=== PATIENT | male | born 1960 | race Caucasian/White ===

== ENCOUNTER 2019-07-02 20:08 | Emergency (ER) | payer BC ==
[2019-07-02] MEDS ORDERED: Ketorolac 60 MG/2 ML SDV IM ONE (20:54)
[2019-07-02] MEDS ORDERED: Ondansetron 4 MG Tab.DIS PO ONE (20:54)
--- NOTE | 2019-07-02 21:02 | EDM.PDOC ---
ED HPI GENERAL MEDICAL PROBLEM - General Chief Complaint: Genitourinary Problem Stated Complaint: SEVERE KIDNEY STONES Time Seen by Provider: 07/02/19 20:45 Source of Information: Reports: Patient, Family, RN Notes Reviewed History Limitations: Reports: No Limitations - History of Present Illness INITIAL COMMENTS - FREE TEXT/NARRATIVE: 58-year-old gentleman presents to emergency department today complaint of left flank pain, he has a known history of nephrolithiasis he states this feels very similar he was doing fine today sudden onset of pain rated 10 out of 10 he has had nausea and vomiting he is not taking anything for the pain Left Abdomen Pain Score (Numeric/FACES): 10 - Related Data Allergies Allergy/AdvReac Type Severity Reaction Status Date / Time No Known Allergies Allergy Verified 07/02/19 20:38 Home Meds: Home Meds Lisinopril 10 mg PO DAILY 07/02/19 [History] Past Medical History Cardiovascular History: Reports: Hypertension Genitourinary History: Reports: Renal Calculus Other Genitourinary History: 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 Denies: Hematuria Musculoskeletal: Reports: No Symptoms Skin: Reports: No Symptoms ED EXAM, GI/ABD - Physical Exam Exam: See Below Exam Limited By: No Limitations General Appearance: Alert, WD/WN, No Apparent Distress Respiratory/Chest: No Respiratory Distress, Lungs Clear, Normal Breath Sounds, No Accessory Muscle Use, Chest Non-Tender Cardiovascular: Regular Rate, Rhythm, No Murmur GI/Abdominal Exam: Soft, Non-Tender Back Exam: Normal Inspection, Full Range of Motion. No: CVA Tenderness (R), CVA Tenderness (L) Course - Vital Signs Last Recorded V/S: Last Vital Signs Temp 95.7 F 07/02/19 20:36 Pulse 50 L 07/02/19 20:36 Resp 16 07/02/19 20:36 BP 140/76 07/02/19 20:36 Pulse Ox 99 07/02/19 20:36 - Orders/Labs/Meds Labs: Laboratory Tests 07/02/19 07/02/19 Range/Units 21:10 21:10 WBC 6.3 (4.5-11.0) K/uL RBC 4.34 (4.30-5.90) M/uL Hgb 12.8 (12.0-15.0) g/dL Hct 39.1 L (40.0-54.0) % MCV 90 (80-98) fL MCH 30 (27-31) pg MCHC 33 (32-36) % Plt Count 250 (150-400) K/uL Neut % (Auto) 83 H (36-66) % Lymph % (Auto) 11 L (24-44) % Lucas % (Auto) 6 (2-6) % Eos % (Auto) 1 L (2-4) % Baso % (Auto) 0 (0-1) % Sodium 141 (140-148) mmol/L Potassium 4.5 (3.6-5.2) mmol/L Chloride 106 (100-108) mmol/L Carbon Dioxide 25 (21-32) mmol/L Anion Gap 10.1 (5.0-14.0) mmol/L BUN 18 (7-18) mg/dL Creatinine 1.7 H (0.8-1.3) mg/dL Est Cr Clr Drug Dosing 54.83 mL/min Estimated GFR (MDRD) 42 L (>60) Glucose 129 H (74-106) mg/dL Calcium 8.8 (8.5-10.1) mg/dL Meds: Medications Discontinued Medications Generic Name Dose Route Start Last Admin Trade Name Freq PRN Reason Stop Dose Admin Ketorolac Tromethamine 60 mg 07/02/19 20:54 07/02/19 21:19 Toradol IM 07/02/19 20:55 60 mg ONETIME ONE Administration Ondansetron HCl 4 mg 07/02/19 20:54 07/02/19 21:19 Zofran Odt PO 07/02/19 20:55 4 mg ONETIME ONE Administration Departure - Departure Time of Disposition: 23:03 Disposition: Home, Self-Care 01 Condition: Fair Clinical Impression: Left renal stone - Discharge Information Instructions: Kidney Stones, [id number] Referrals: PCP,None [Primary Care Provider] - Forms: ED Department Discharge Additional Instructions: Use Toradol as needed for baseline pain control, use hydrocodone for breakthrough pain, please follow-up with your urologist upon return home. - Assessment/Plan Plan: Assessment Acuity = acute Site and laterality = left nephrolithiasis 12 mm x 9 mm Etiology = unknown etiology Manifestations = pain, nausea, vomiting Location of injury = Home Lab values = CBC CMP unremarkable CT scan describes a stone above Plan I did review lab work CT scan results with him he had good relief from the Toradol provided, prescription written for Toradol 10 mg by mouth 3 times a day when necessary total #20 as well as hydrocodone 5/325 one tab by mouth every 6 hours when necessary total #10 he will follow up with his urologist upon return home a report of this CAT scan was also provided This note was dictated using [employer] voice recognition software please call with any questions on syntax or grammar.
--- NOTE | 2019-07-02 22:35 | CRLCT ---
INDICATION: Left flank pain. COMPARISON: None available TECHNIQUE: CT examination of the abdomen and pelvis was performed without contrast enhancement using 2 mm thick axial sections from the lung bases through the pubic symphysis. Oral contrast was not administered. Please note that all CT scans at this facility use dose modulation, iterative reconstruction, and/or weight-based dosing when appropriate to reduce radiation dose to as low as reasonably achievable. FINDINGS: In the abdomen, the unenhanced liver, spleen, pancreas, and adrenals are normal in appearance. There is mild left hydronephrosis and moderate dilatation of the left renal pelvis from a 12 x 9 millimeter UPJ calculus. There is no sign of any additional renal or ureteral calculi. There is no sign of additional ureteral dilatation. There is prominent atrophy of the right kidney with marked thinning of the cortex. There is mild calcification of the posterior renal cortex in the lower pole. A few other punctate cortical calcifications are scattered throughout the right kidney. There is no sign of right hydronephrosis or hydroureter. The gallbladder is normal in appearance. The abdominal aorta is normal in caliber with no sign of dilatation. There is no sign of retroperitoneal mass or adenopathy. There are multiple lines of surgical mekhi in the area of the gastric fundus consistent with gastric bypass surgery. The rest of the stomach, loops of small bowel, and colon in the abdomen are normal in appearance. In the pelvis, the appendix is normal in appearance with no sign of inflammatory process. The loops of small bowel and colon in the pelvis are normal in appearance. The prostate is normal in appearance. The urinary bladder is normal in appearance. There is no sign of pelvic or inguinal mass or adenopathy. There is mild linear scarring in the posterior right lung base. The lung bases are otherwise clear. There is grade 1 posterior subluxation of L5 on S1 with prominent L5-S1 disc degenerative disease. There may be fusion at this level. 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 IMPRESSION: CT of the abdomen shows mild left hydronephrosis and moderate dilatation of the left renal pelvis produced by a 12 x 9 millimeter left UVJ calculus. No sign of any additional left renal or ureteral calculi. Prominent atrophy of the right kidney with several areas of cortical calcification. Status post gastric bypass surgery. Normal CT of the pelvis without contrast. Please note that all CT scans at this facility use dose modulation, iterative reconstruction, and/or weight-based dosing when appropriate to reduce radiation dose to as low as reasonably achievable. Dictated by Juwan Mckeon MD @ Jul 02 2019 10:24PM Signed by Dr. Juwan Mckeon @ Jul 02 2019 10:34PM
== END 2019-07-02 23:15 | disposition home or self-care (01) ==
LOC: JP.ED 20:08
DX: N13.2 Hydronephrosis with renal and ureteral calculous obstruction (principal); I10 Essential (primary) hypertension; Z79.899 Other long term (current) drug therapy
CPT/HCPCS: 36415; 74176; 80048; 85025; 96372; 99284; A9270; J1885